=== PATIENT | female | born 1985 | race Caucasian/White ===

== ENCOUNTER 2022-03-16 09:50 | Outpatient (CLI) | payer MEDICAID, SELFPAY | END 2022-03-16 09:51 | disposition home or self-care (01) | LOC: LKVREF 09:51 | PROVIDERS: PCP Obstetrics & Gynecology; Visit Provider Physician Assistant Medical | DX: N39.0 Urinary tract infection, site not specified (principal) | CPT/HCPCS: 87086; 87186 ==

== ENCOUNTER 2022-11-18 12:48 | Outpatient (CLI) | payer MEDICAID, SELFPAY ==
[2022-11-18 22:42] LABS: Chlamydia DNA Amplified* NOT DETECTED (No Detected); GC DNA Amplified* NOT DETECTED (No Detected)
== END 2022-11-18 12:49 | disposition home or self-care (01) ==
LOC: LKVREF 12:49
PROVIDERS: PCP Obstetrics & Gynecology; Visit Provider Physician Assistant Medical
DX: Z00.00 Encounter for general adult medical examination without abnormal findings (principal); Z11.3 Encounter for screening for infections with a predominantly sexual mode of transmission
CPT/HCPCS: 0353U; 87491; 87591

== ENCOUNTER 2022-11-19 08:04 | Outpatient (CLI) | payer MEDICAID, SELFPAY | END 2022-11-19 08:05 | disposition home or self-care (01) | PROVIDERS: PCP Obstetrics & Gynecology; Visit Provider Physician Assistant Medical | DX: Z00.00 Encounter for general adult medical examination without abnormal findings (principal); E78.5 Hyperlipidemia, unspecified; L70.9 Acne, unspecified | CPT/HCPCS: 80053; 80061 ==

== ENCOUNTER 2023-06-03 10:28 | Outpatient (CLI) | payer MEDICAID, SELFPAY | END 2023-06-03 10:29 | disposition home or self-care (01) | PROVIDERS: PCP Obstetrics & Gynecology; Visit Provider Family Medicine | DX: R42 Dizziness and giddiness (principal); R47.81 Slurred speech; E78.5 Hyperlipidemia, unspecified | CPT/HCPCS: 80053; 84443 ==

== ENCOUNTER 2023-06-09 12:38 | Outpatient (CLI) | payer MEDICAID, SELFPAY ==
--- NOTE | 2023-06-09 13:00 | CRLHL7_ITS ---
For Patients: As a result of the Century Cures Act, medical imaging exams and procedure reports are released immediately into your electronic medical record. You may view this report before your referring provider. If you have questions, please contact your health care provider. INDICATION: Syncope. TECHNIQUE: Multisequence multiplanar MRI of the head without contrast. COMPARISON: None available. FINDINGS: Diffusion-weighted imaging demonstrates no evidence of acute or subacute ischemia. There is no abnormal brain parenchymal signal intensity. The ventricles are normal in size. Flow voids of the larger intracranial arteries are patent. Bone marrow signal intensity of the calvarium is within normal limits. Orbits are unremarkable in appearance. Paranasal sinuses and mastoid air cells are predominantly clear. IMPRESSION: Unremarkable noncontrast MRI of the brain. Dictated by Osiel Wiggins MD @ 06/09/2023 4:47:06 PM (Electronically Signed)
== END 2023-06-09 12:39 | disposition home or self-care (01) ==
PROVIDERS: PCP Family Medicine; Visit Provider Family Medicine
DX: R55 Syncope and collapse (principal); R47.81 Slurred speech; R42 Dizziness and giddiness
CPT/HCPCS: 70551

== ENCOUNTER 2023-10-05 13:33 | Outpatient (CLI) | payer MEDICAID, SELFPAY | END 2023-10-05 13:34 | disposition home or self-care (01) | LOC: NFLDREF 10-15 14:06 | PROVIDERS: PCP Family Medicine; Referring Provider Family Medicine; Visit Provider Family Medicine | DX: E78.00 Pure hypercholesterolemia, unspecified (principal); E78.5 Hyperlipidemia, unspecified | CPT/HCPCS: 80061; 80076 ==

== ENCOUNTER 2024-01-16 20:27 | Emergency (ER) | payer MEDICAID, SELFPAY ==
[2024-01-16 20:36] VITALS: BP 123/84; PULSE 77; RESP 16; TEMP 36.6; O2SAT 100; BMI 28.3
--- NOTE | 2024-01-16 20:44 | CRLHL7_ITS ---
For Patients: As a result of the Century Cures Act, medical imaging exams and procedure reports are released immediately into your electronic medical record. You may view this report before your referring provider. If you have questions, please contact your health care provider. Indication: Knee pain Technique: Right knee 3 views Comparison: None Findings: Bones: Alignment is normal. No fractures or bone lesions. Joint spaces: Spurring at the lateral aspect of the patella. Joint effusion. Soft tissues: Unremarkable. Impression: Joint effusion. No fracture. Dictated by Bar Bailon MD @ 01/16/2024 9:55:16 PM (Electronically Signed)
--- NOTE | 2024-01-16 20:45 | ED.GENADULT ---
HPI - General Adult General Date Seen: 01/16/24 Chief complaint: Unspecified Complaint, Adult Stated complaint: 3 weeks knee pain/swelling right arm numb/burning Time Seen by Provider: 01/16/24 20:35 Source: patient, RN notes reviewed and old records reviewed Mode of arrival: ambulatory Limitations: no limitations History of Present Illness HPI narrative: Patient is a 38-year-old woman here for evaluation of 2 problems. One she says for the past few weeks she has been having some pain in her knee. Sometimes the outside upper part of the knee puffs up she says. She has trouble kneeling on it because it is painful and bending it to an extreme is also painful. She has not had any specific injury, no locking or giving out. Also she notes for the past couple weeks in the mornings particularly she is getting some burning pain in her right arm. It is not there currently. No weakness or numbness. She has been getting chiropractic adjustment of her neck in her knee but says she can not continue to do that because it is too expensive. She does not have any known history of cervical radiculopathy. She has not had fevers, no neck trauma, no neck pain. Related Data Previous Rx's ?Medication ?Instructions ?Recorded lorazepam 0.5 mg tablet (Ativan) 0.5 mg PO BID PRN anxiety #60 tabs 07/08/23 rosuvastatin 10 mg tablet 10 mg PO DAILY #90 tabs 07/08/23 clonazepam 1 mg tablet (Klonopin) 0.5 - 1 mg (0.5 - 1 x 1 mg) PO QHS 10/20/23 #30 tabs venlafaxine 150 mg 150 mg PO QAM #30 caps 10/20/23 capsule,extended release 24 hr (Effexor XR) Allergies Allergy/AdvReac Type Severity Reaction Status Date / Time No Known Drug Allergies Allergy Verified 08/03/23 12:33 Review of Systems Status of ROS: Reports: 10 or more systems reviewed and unremarkable except as noted in History and below [facility] Medical History Depression ?F32.A - Depression, unspecified (ICD-10) Ectopic (05/10/12) ?O00.90 - Unspecified ectopic without intrauterine (ICD-10) Abnormal cervical Papanicolaou smear (05/10/12) ?R87.619 - Unspecified abnormal cytological findings in specimens from cervix uteri (ICD-10) Surgical History H/O right wrist surgery ?Z98.890 - Other specified postprocedural states (ICD-10) Status post tubal ligation ?Z98.51 - Tubal ligation status (ICD-10) History of umbilical hernia repair ?Z98.890 - Other specified postprocedural states (ICD-10) ?Z87.19 - Personal history of other diseases of the digestive system (ICD-10) History of cone biopsy of cervix ?Z98.890 - Other specified postprocedural states (ICD-10) History of appendectomy (05/10/12) ?Z90.49 - Acquired absence of other specified parts of digestive tract (ICD-10) Family History Maternal Grandmother Angiosarcoma Mother Bone cancer Paternal Grandfather Cardiac mass Social History Narrative: . 4 kids ( 16, 11, 7, 3 yo). 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 In general, an alert, well-appearing patient. Looks comfortable. Head: Normocephalic, atraumatic. Eyes: Pupils are equal reactive. Extraocular movements are full. Conjunctivae are normal. ENT: Mucous membranes are moist. Neck: Supple without lymphadenopathy. Nontender to palpation. Extremities: Well perfused. No edema. No calf tenderness. Pulses intact. The right knee is normal in appearance, no effusion, erythema, warmth. Full range of motion. A little bit of tenderness along the lateral joint line. Neurologic: Patient is alert and oriented to person and place. Speech is fluent. Face is symmetric. Moves all extremities equally. Strength is 5 of 5 in bilateral upper extremities. Sensation is intact to light touch. Affect: Normal. Skin: Warm and dry. Well perfused. Const: Vital Signs, click to edit/add: Vital Signs - 24 hr 01/16/24 20:36 Temperature 97.9 F Pulse Rate [Pulse Oximeter] 77 Respiratory Rate 16 Blood Pressure [Ri ght Upper Arm] 123/84 Pulse Oximetry 100 Oxygen Delivery Me thod Room Air Documenting provider has reviewed patient's vital signs: yes Course Course ED Course: X-rays of the right knee are ordered, by my review shows some spurring/degenerative changes of the lateral patella, radiology read as follows:Findings: Bones: Alignment is normal. No fractures or bone lesions. Joint spaces: Spurring at the lateral aspect of the patella. Joint effusion. Soft tissues: Unremarkable. Impression: Joint effusion. No fracture. Note this read came after patient had been discharged. Recommended a trial of nonsteroidals for the knee, there is nothing on exam to suggest an infectious or inflammatory process such as gout, other inflammatory arthritis, or septic joint. With regard her right arm symptoms, I suggested a trial of prednisone, this may be coming from something like a cervical disc but she does not have symptoms right now. Given that the entire arm is involved and less suspicious of neuropathy. No evidence cellulitis, DVT. Recommend primary care follow-up in the next week or 2, return any time for acute worsening. Orthopedic follow-up if knee continues to bother her. Vital Signs Vital signs: Initial Vital Signs Temperature 97.9 F 01/16/24 20:36 Temperature Source Temporal Artery Scan 01/16/24 20:36 Pulse Rate 77 01/16/24 20:36 Respiratory Rate 16 01/16/24 20:36 Blood Pressure 123/84 01/16/24 20:36 Blood Pressure Mean 97 01/16/24 20:36 Blood Pressure Position Sitting 01/16/24 20:36 Pulse Oximetry 100 01/16/24 20:36 Oxygen Delivery Method Room Air 01/16/24 20:36 Vital Signs Temperature 97.9 F 01/16/24 20:36 Pulse Rate 77 01/16/24 20:36 Respiratory Rate 16 01/16/24 20:36 Blood Pressure 123/84 01/16/24 20:36 Pulse Oximetry 100 01/16/24 20:36 Oxygen Delivery Method Room Air 01/16/24 20:36 Temperature 97.9 F 01/16/24 20:36 Pulse Rate 77 01/16/24 20:36 Respiratory Rate 16 01/16/24 20:36 Blood Pressure 123/84 01/16/24 20:36 Pulse Oximetry 100 01/16/24 20:36 Oxygen Delivery Method Room Air 01/16/24 20:36 Discharge Plan Discharge Clinical Impression: Knee pain, right Patient Disposition: Home, Self-Care Condition: Stable Instructions: Knee Pain (ED) Additional Instructions: I suspect that your knee pain may be due to a little bit of arthritis based on your x-rays. I would recommend a trial of ibuprofen 400 mg 3 times daily for the next week or so to see if you are improved. Make sure to take this with food. You can follow-up with orthopedics if you have ongoing difficulties, . For new symptoms such as significant swelling or redness, fever, etcetera, return to the emergency department. With regard your arm, I am not certain of the cause of those symptoms, but it may be related to a problem in your neck. I have prescribed a prednisone taper to see if that will improve things. Please follow-up with your primary doctor in the next week or 2 for re-evaluation. Return any time for acute worsening. Prednisone should be taken as follows, 3 tablets daily for 3 days, then 2 tablets daily for 3 days, then 1 tablet daily for 3 days. Prescriptions: No Action lorazepam [Ativan] 0.5 mg tablet 0.5 mg PO BID PRN (Reason: anxiety) Qty: 60 0RF rosuvastatin 10 mg tablet 10 mg PO DAILY Qty: 90 0RF clonazepam [Klonopin] 1 mg tablet 0.5 - 1 mg PO QHS Qty: 30 0RF Rx Instructions: administer 30 minutes before bedtime venlafaxine [Effexor XR] 150 mg capsule,extended release 24hr 150 mg PO QAM Qty: 30 2RF Follow Up/Referrals: Sy Baires MD [Primary Care Provider] - Stand Alone Forms: [employer] Info Instructions
--- OUTSIDE RECORDS SUMMARY | 2024-01-16 20:52 | XMS_ITS | Clinical Summary ---
Author Organization [employer] [facility] Address [place], [place] [address] Care Team Providers Care Household Cook Name Role Phone [place], [facility] Primary Care Provider Unavailable Allergies No known active allergies Medications Medication Sig Dispensed Refills Start Date End Date Status ibuprofen (ADVIL; MOTRIN) 600 mg tablet Take 1 tablet by mouth every 6 hours if needed for Pain. Maximum of 3200 mg in 24 hours. 30 tablet 0 10/22/2010 Active Active Problems Problem Noted Date Diagnosed Date Hyperopic astigmatism of right eye 07/16/2017 DYSPLASIA, CERVIX, MODERATE 06/19/2005 CONTRACEPTIVE PRESCRIPTION, MEASURE NEC 05/23/20 01 Resolved Problems Problem Noted Date Diagnosed Date Resolved Date Supervision of high-risk pre gnancy of young primigravida 07/23/2006 07/28/2007 Immunizations Name Administration Dates Next Due Human Papilloma Virus Vaccine 01/30/2008, 008,07/28/2007 Influenza, IIV3 (Age >=3 years) 07/23/2006,06/19 Tdap 06/07/2007 Family History Medical History Relation Name Comments Seizures Brother 2 Cancer Maternal Grandmother angiosc coma Allergies Mother Asthma Mother Genetic Other MGM: angiosarco ma~PGF: Alzheimers~MGF: COPD~no breast cancer, colon cancer Cancer Paternal Grandmother yun hernández Relation Name Status Comments Brother 1 Alive Brother 2 Father Alive Maternal Grandfather (Age ?) Maternal Grandmother (Age 50's) Mother Alive Other Paternal Grandfather Alive Paternal Grandmother (Age ?) Sister Alive Social History Tobacco Use Types Packs/Day Years Used Date Smoking Tobacco: Never Smokeless Tobacco: Never Alcohol Use Standard Drinks/Week Comments No 0 (1 standard drink = 0.6 oz pur e alcohol) Sex and Gender Information Value Date Recorded Sex Assigned at Not on file Gender Identity Not on file Sexual Orientation Not on file Obstetrics History Para Term AB IAB SAB Ectopic Multiple Livin g Live Births 2 1 1 0 0 0 0 0 1 1 Date Outcome GA Total Labor Labor/2nd/3rd Weight Sex Type Anes PTL Dona A1 A5 Name Clin Term 2006 40w 0d 3.49 kg (7 lb 11 oz) F VAGINA L VACU Livin g Kaylah e Delivery Location:R Comments:vaccuum gloria swathi, had epidural, pitocin Last Filed Vital Signs Vital Sign Reading Time Taken Comments Blood Pressure 114/70 07/16/2017 11:02 AM [employer]ORER [employer] Pulse 92 07/16/2017 11:02 AM [employer] Temperature 36.4 ??C (97.6 ??F) 10/22/2010 11:31 AM C DT Respiratory Rate 16 10/22/2010 12:30 PM CDT Oxygen Saturation 100% 10/22/2010 12:30 PM CDT Inhaled Oxygen Concentration - - Weight 60.4 kg (133 lb 2.5 oz) 10/22/2010 9:18 A M CDT Height 157.5 cm (5' 2) 10/22/2010 9:18 AM CDT Body Mass Index 24.35 10/22/2010 9:18 AM CDT Plan of Treatment Health Maintenance Due Date Last Done Comments Depression screening for age 12+ 1995 HIV for age 15-65 12/22/1998 BMI (ht and wt on same day) for age 18+ 12/22/2001 Hepatitis C screening for age 18-79 12/22/2001 Tetanus booster 06/07/2017 06/07/2007 COVID-19 vaccine series ( season) 2023 Influenza for age 9-49 04/09/2024 07/23/2006, 2004 Pap test for age 21-65 11/18/2025 3, 11/18/2022, 11/30/2016, Additional history exists Tdap Completed 06/07/2007 Pneumococcal series for age 6-64 Aged Out No longer eligible based on patient's age to complete this topic Procedures Procedure Name Priority Date/Time Associated Diagnosis Comments HPV THIN PREP Routine 11/18/2022 12:00 PM CDT from Last 3 Months or Most Recently Relevant to Health Maintenance Results * HPV HIGH RISK (11/18/2022 12:00 PM CDT) TYPE 16 Negative Negative 11/23/2022 1:45 PM CDT [facility] TYPE 18 Negative Negative 11/23/2022 1:45 PM CDT [facility] OTHER HIGH RISK TYPES Negative Negative 11/23/2022 1:45 PM CDT [facility] Other (Cervical) 11/18/2022 12:00 PM CDT 11/20/2022 10:42 AM CDT Narrative [facility] - 11/23/2022 1:45 PM CDT HPV types 16, 18, 31, 33, 35, 39, 45, 51, 52, 56, 58, 59, 66 and 68 DNA were undetectable or below the pre-set threshold. Methodology: Antonette Kp 4800 HPV Test Nanette Roberts PA-C MICROBIOLOGY [facility] [address] [place] [address], from Last 3 Months or Most Recently Relevant to Health Maintenance Advance Directives * Full Code (Latest Code Status on File) Date Activated Date Inactivated Comments 10/22/2010 9:12 AM 10/22/2010 3:35 PM Care Teams Household Cook Relationship Specialty Start Date End Date Kevin, ChengFamily Health PCP - General 07/05/17
== END 2024-01-16 22:08 | disposition home or self-care (01) ==
PROVIDERS: Emergency Provider Emergency Medicine; PCP Family Medicine
DX: M25.561 Pain in right knee (principal)
CPT/HCPCS: 73562; 99283; 99284

== ENCOUNTER 2024-11-12 07:34 | Emergency (ER) | payer MEDICAID, SELFPAY ==
--- OUTSIDE RECORDS SUMMARY | 2024-11-12 07:35 | XMS_ITS | Clinical Summary ---
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 Gender Identity Not on file Sexual Orientation Not on file 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 Not on file Not on file Obstetrics History Para Term [...] Comments Blood Pressure 114/70 07/16/2017 11:02 AM DESK MANAGER Pulse 92 07/16/2017 11:02 AM DESK MANAGER Temperature 36.4 C (97.6 F) 10/22/2010 11:31 AM CDT Respiratory Rate 16 10/22/2010 12:30 PM CDT [...] Tetanus booster 06/07/2017 06/07/2007 COVID-19 vaccine series (2023- season) 2024 Influenza Vaccine (Season Ended) 2025 07/23/2006, 06/19/2005 Pap test for age 21-65 11/18/2025 , 11/18/2022, 11/30/2016, Additional history exists Tdap Completed 06/07/2007 Pneumococcal series for age 6-49 Aged Out No longer eligible based on patient's age to complete this topic Procedures Procedure Name Priority Date/Time Associated Diagnosis Comments HPV HIGH RISK Routine 11/18/2022 12:00 PM CDT from Last 3 Months or Most Recently Relevant to Health Maintenance Results * HPV HIGH RISK (11/18/2022 12:00 PM CDT) TYPE 16 Negative Negative 11/23/2022 1:45 PM CDT [facility] TYPE 18 Negative Negative 11/23/2022 1:45 PM CDT [facility]AL [facility] OTHER HIGH RISK TYPES Negative Negative 11/23/2022 1:45 PM CDT [facility] Other (Cervical) 11/18/2022 12:00 PM CDT 11/20/2022 10:42 AM CDT Narrative [facility] - 11/23/2022 1:45 PM CDT HPV types 16, 18, 31, 33, 35, 39, 45, 51, 52, 56, 58, 59, 66 and 68 DNA were undetectable or below the pre-set threshold. Methodology: Antonette Kp 4800 HPV Test Nanette Roberts PA-C MICROBIOLOGY Final Result [facility] [address] [place] [address], from Last 3 Months or Most Recently Relevant to Health Maintenance Insurance MEDICAID [facility] [employer] Advance Directives * Full Code (Latest Code Status on File) Date Activated Date Inactivated Comments 10/22/2010 9:12 AM 10/22/2010 3:35 PM Care Teams Evaluation Engineer Relationship Specialty Start Date End Date [facility] PCP - General 07/05/17
[2024-11-12 07:36] VITALS: BP 130/73; PULSE 88; RESP 18; TEMP 36.3; O2SAT 99; BMI 29.3
--- NOTE | 2024-11-12 07:51 | ED.GENADULT ---
HPI - General Adult General Chief complaint: Skin/Abscess/Foreign Body Stated complaint: R forearm rash/R eye Time Seen by Provider: 11/12/24 07:35 History of Present Illness HPI narrative: 38-year-old female reports that she has some redness in her forearm and infection under fingernail on her right hand. She has noticed redness today that is in the back of her hand and snf up her forearm. She has had no other complaints. She is updated immunizations. She reports she bumped her head work but that was minor and did have discomfort right away She also complained of some irritated right eye. No chemical exposure does not wear contacts visual acuity has been normal. Related Data Previous Rx's ?Medication ?Instructions ?Recorded meloxicam 15 mg tablet 15 mg PO QDAY #90 tabs 06/08/24 venlafaxine 150 mg 150 mg PO QAM #90 caps 10/10/24 capsule,extended release 24 hr (Effexor XR) venlafaxine 75 mg capsule,extended 75 mg PO QAM #90 caps 10/10/24 release 24 hr (Effexor XR) Allergies Allergy/AdvReac Type Severity Reaction Status Date / Time No Known Drug Allergies Allergy Verified 11/12/24 07:43 Review of Systems Status of ROS: Reports: 6 or more systems reviewed and unremarkable except as noted in History and below PFSH PFS Medical History Depression ?F32.A - Depression, unspecified (ICD-10) Ectopic (05/10/12) ?O00.90 - Unspecified ectopic without intrauterine (ICD-10) Abnormal cervical Papanicolaou smear (05/10/12) ?R87.619 - Unspecified abnormal cytological findings in specimens from cervix uteri (ICD-10) Surgical History H/O right wrist surgery ?Z98.890 - Other specified postprocedural states (ICD-10) Status post tubal ligation ?Z98.51 - Tubal ligation status (ICD-10) History of umbilical hernia repair ?Z98.890 - Other specified postprocedural states (ICD-10) ?Z87.19 - Personal history of other diseases of the digestive system (ICD-10) History of cone biopsy of cervix ?Z98.890 - Other specified postprocedural states (ICD-10) History of appendectomy (05/10/12) ?Z90.49 - Acquired absence of other specified parts of digestive tract (ICD-10) Family History Maternal Grandmother Angiosarcoma Mother Bone cancer Paternal Grandfather Cardiac mass Social History Narrative: . 4 kids ( 16, 11, 7, 3 yo). 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 There is no fluctuance or purulent pockets noted this is likely related to her cellulitic changes Const: Vital Signs, click to edit/add: Vital Signs - 24 hr 11/12/24 07:36 Temperature 97.3 F L Pulse Rate [Right Pulse Oximeter] 88 Respiratory Rate 18 Blood Pressure [Ri ght Upper Arm] 130/73 Pulse Oximetry 99 Oxygen Delivery Me thod Room Air Course Vital Signs Vital signs: Initial Vital Signs Temperature 97.3 F L 11/12/24 07:36 Temperature Source Temporal Artery Scan 11/12/24 07:36 Pulse Rate 88 11/12/24 07:36 Pulse Rhythm Regular 11/12/24 07:36 Pulse Strength 3+ Normal 11/12/24 07:36 Respiratory Rate 18 11/12/24 07:36 Blood Pressure 130/73 11/12/24 07:36 Blood Pressure Mean 92 11/12/24 07:36 Blood Pressure Position Sitting 11/12/24 07:36 Pulse Oximetry 99 11/12/24 07:36 Oxygen Delivery Method Room Air 11/12/24 07:36 Vital Signs Temperature 97.3 F L 11/12/24 07:36 Pulse Rate 88 11/12/24 07:36 Respiratory Rate 18 11/12/24 07:36 Blood Pressure 130/73 11/12/24 07:36 Pulse Oximetry 99 11/12/24 07:36 Oxygen Delivery Method Room Air 11/12/24 07:36 Temperature 97.3 F L 11/12/24 07:36 Pulse Rate 88 11/12/24 07:36 Respiratory Rate 18 11/12/24 07:36 Blood Pressure 130/73 11/12/24 07:36 Pulse Oximetry 99 11/12/24 07:36 Oxygen Delivery Method Room Air 11/12/24 07:36 Medications Administered Medications: Discontinued Medications Generic Name Dose Route Start Last Admin Trade Name Freq PRN Reason Stop Dose Admin Amoxicillin/Clavulanate Potassium 875 mg 11/12/24 07:49 11/12/24 08:01 Amoxicillin/Clavulanate 875 Mg/125 Mg Tablet PO 11/12/24 07:50 875 mg ONCE ONE Administration Medical Decision Making [facility] Narrative Medical decision making narrative: [age] year white female with a history of perineal infection with forearm lymphangitic cellulitic change. Also right eye irritation possibly early conjunctivitis. Patient does not were contacts. At this point I think simply treating with warm packs Augmentin 875 b.i.d. times 10 days would be appropriate. I think that will help with her eye and her forearm. If she does not improve or has worsening over the next 2-3 days would recommend recheck. She was comfortable this plan will follow up as directed activity as tolerated. Follow-up with primary care if not improving and return to ED problems or concerns. Will get her meds today [place] med[place] and will give her on Augmentin 875 here in the ER. Discharge Plan Discharge Clinical Impression: Cellulitis, Paronychia Patient Disposition: Home, Self-Care Condition: Stable Additional Instructions: Warm pack the arm, warm pack the eye wash out with a warm wash rag several times a day, Augmentin 875 b.i.d. for 10 days, activity as tolerated, recheck of worsening changes or concerns. Activity Level: No Restrictions Discharge Diet: Regular Prescriptions: No Action meloxicam 15 mg tablet 15 mg PO QDAY Qty: 90 1RF venlafaxine [Effexor XR] 75 mg capsule,extended release 24hr 75 mg PO QAM Qty: 90 0RF venlafaxine [Effexor XR] 150 mg capsule,extended release 24hr 150 mg PO QAM Qty: 90 0RF Follow Up/Referrals: Sy Baires MD [Primary Care Provider] - Stand Alone Forms: [employer] Info Instructions
[2024-11-12] MEDS: AMOXICILLIN/CLAVULANATE 875 mg/125 mg TABLET PO (08:01)
== END 2024-11-12 08:04 | disposition home or self-care (01) ==
LOC: ED 07:54
PROVIDERS: Emergency Provider Family Medicine; PCP Family Medicine
DX: L03.113 Cellulitis of right upper limb (principal); L03.011 Cellulitis of right finger
CPT/HCPCS: 99283; A9270

== ENCOUNTER 2024-12-23 23:46 | Emergency (ER) | payer MEDICAID, SELFPAY ==
[2024-12-23 23:53] VITALS: BP 130/89; PULSE 72; RESP 16; TEMP 36.1; O2SAT 99; BMI 29.3
--- NOTE | 2024-12-24 01:08 | ED_ITS ---
HPI - General Adult General Chief complaint: Jaw Injury/Pain Stated complaint: left side face pain Time Seen by Provider: 12/24/24 00:53 Source: patient Mode of arrival: ambulatory Limitations: no limitations History of Present Illness HPI narrative: 39-year-old female presents to the emergency department because of swelling on her jaw line. For the past 2 hours. No trauma or injury. No fever. She has had a small bump on the inside of her mouth for the past couple of weeks, reports that she saw her dentist and he did not think it was anything of note, at that time she was not having any facial swelling. She is vaccinated, no illness exposures. Has not tried any Tylenol or ibuprofen to help with symptoms. No prior history of similar symptoms. Swelling is on the left side, mildly tender. Opposite right side is not affected. Past medical history notable for anxiety and insomnia. Reports that her only home medication is venlafaxine. Social history reviewed. ROS is notable for the HEENT symptoms only, otherwise denies other HEENT, generalized, respiratory, GI or skin changes. Related Data Previous Rx's ?Medication ?Instructions ?Recorded meloxicam 15 mg tablet 15 mg PO QDAY #90 tabs 06/08/24 venlafaxine 150 mg 150 mg PO QAM #90 caps 10/10/24 capsule,extended release 24 hr (Effexor XR) venlafaxine 75 mg capsule,extended 75 mg PO QAM #90 caps 10/10/24 release 24 hr (Effexor XR) Allergies Allergy/AdvReac Type Severity Reaction Status Date / Time No Known Drug Allergies Allergy Verified 11/12/24 07:43 [facility] Medical History Depression ?F32.A - Depression, unspecified (ICD-10) Ectopic (05/10/12) ?O00.90 - Unspecified ectopic without intrauterine (ICD- 10) Abnormal cervical Papanicolaou smear (05/10/12) ?R87.619 - Unspecified abnormal cytological findings in specimens from cervix uteri (ICD-10) Surgical History H/O right wrist surgery ?Z98.890 - Other specified postprocedural states (ICD-10) Status post tubal ligation ?Z98.51 - Tubal ligation status (ICD-10) History of umbilical hernia repair ?Z98.890 - Other specified postprocedural states (ICD-10) ?Z87.19 - Personal history of other diseases of the digestive system (ICD-10) History of cone biopsy of cervix ?Z98.890 - Other specified postprocedural states (ICD-10) History of appendectomy (05/10/12) ?Z90.49 - Acquired absence of other specified parts of digestive tract (ICD- 10) Family History Maternal Grandmother Angiosarcoma Mother Bone cancer Paternal Grandfather Cardiac mass Social History Narrative: . 4 kids ( 16, 11, 7, 3 yo). 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 employed as [employer] No tobacco use, recreational drugs, alcohol Smoking Status: Never smoker Non-prescribed substance use: denies use Exam Const: Vital Signs, click to edit/add: Vital Signs - 24 hr 12/23/24 23:53 Temperature 96.9 F L Pulse Rate [Left P ulse Oximeter] 72 Respiratory Rate 16 Blood Pressure [Ri ght Upper Arm] 130/89 Pulse Oximetry 99 Oxygen Delivery Me thod Room Air Documenting provider has reviewed patient's vital signs: yes Common normals: no apparent distress General appearance: cooperative and comfortable HENMT: Common normals: normocephalic and moist oral mucous membranes Head and scalp: normocephalic Other: Mild swelling to lower outer 1st molar area left side. No signs of dental caries or broken teeth. No discoloration to the tooth. This correlates with swelling on the external skin. Jaw without deformity but there is some mild soft tissue swelling in the area described. Normal open and closure of the jaw, no tenderness over the TMJ joint. Remainder of oral mucosa and dentition are normal. Eye: Common normals: conjunctivae normal General eye: normal appearance of both eyes Conjunctiva: conjunctiva(e) normal Neck & C-Spine: Common normals: full ROM Other: Mild left submandibular lymphadenopathy only. No other areas affected. Remainder of neck with no swelling. Resp: Common normals: normal respiratory effort Effort & inspection: able to speak in complete sentences Psych: Common normals: speech normal Attitude: engaged Speech: normal speech Insight: fair Judgement: fair Skin: Common normals: no rashes or lesions noted General skin exam: no r ashes or lesions noted Course Course ED Course: 39-year-old female with very mild swelling of submandibular area, jawline and inter oral mucosa without signs of dental caries. Most likely diagnosis is sialadenitis, as this does seem to correlate with duct opening. There are no signs of major facial cellulitis, airway compromise, neck swelling or other emergent condition. Counseled on typical management of sour candy, pushing fluids. I do recommend a course of Augmentin 1 pill b.i.d. for 7 days. Dental follow-up if not improving in 5 days. Counseled that rarely infections can spread and cause difficulty with breathing, swallowing. If this occurs, she should come back to the ER right away. Most likely the small stone will work its way out, if not more advanced imaging and treatment may be needed but unlikely. Alarm symptoms reviewed, written instructions provided. Counseled on Tylenol and ibuprofen as needed for mild discomfort. Vital Signs Vital signs: Initial Vital Signs Temperature 96.9 F L 12/23/24 23:53 Temperature Source Temporal Artery Scan 12/23/24 23:53 Pulse Rate 72 12/23/24 23:53 Pulse Rhythm Regular 12/23/24 23:53 Respiratory Rate 16 12/23/24 23:53 Blood Pressure 130/89 12/23/24 23:53 Blood Pressure Mean 102 12/23/24 23:53 Blood Pressure Position Sitting 12/23/24 23:53 Pulse Oximetry 99 12/23/24 23:53 Oxygen Delivery Method Room Air 12/23/24 23:53 Vital Signs Temperature 96.9 F L 12/23/24 23:53 Pulse Rate 72 12/23/24 23:53 Respiratory Rate 16 12/23/24 23:53 Blood Pressure 130/89 12/23/24 23:53 Pulse Oximetry 99 12/23/24 23:53 Oxygen Delivery Method Room Air 12/23/24 23:53 Temperature 96.9 F L 12/23/24 23:53 Pulse Rate 72 12/23/24 23:53 Respiratory Rate 16 12/23/24 23:53 Blood Pressure 130/89 12/23/24 23:53 Pulse Oximetry 99 12/23/24 23:53 Oxygen Delivery Method Room Air 12/23/24 23:53 Discharge Plan Discharge Clinical Impression: Acute sialoadenitis Patient Disposition: Home w/ Parent or Adult Condition: Stable Instructions: Sialoadenitis (ED) Additional Instructions: As we discussed, the swelling seems to be from an inflammation of a salivary gland. Often, there is a small stone in the duct that will relieve itself within the next week or 2. Sometimes it is caused by a bacterial infection or a viral infection. Antibiotics can calm down the inflammation. I have prescribed a course of Augmentin. Take 1 pill 2 times a day. It may cause loose stools. It is okay to use a little bit of Imodium to help counteract this. It is okay to use an ofqo-yio-sbjaqza Monistat or similar product to help reduce or treat vaginal yeast infection as well. If symptoms are not improving in 5 days, I would make a follow-up appointment with my dentist. It is okay to use Tylenol 1000 mg every 6 hours and or ibuprofen 600 mg every 6 hours as needed for discomfort. This is non contagious and you are cleared to return to work. Activity Level: No Restrictions Discharge Diet: Regular Prescriptions: No Action meloxicam 15 mg tablet 15 mg PO QDAY Qty: 90 1RF venlafaxine [Effexor XR] 75 mg capsule,extended release 24hr 75 mg PO QAM Qty: 90 0RF venlafaxine [Effexor XR] 150 mg capsule,extended release 24hr 150 mg PO QAM Qty: 90 0RF Follow Up/Referrals: Sy Baires MD [Primary Care Provider] - Stand Alone Forms: [employer] Info Instructions
--- OUTSIDE RECORDS SUMMARY | 2024-12-24 17:40 | XMS_ITS | Clinical Summary ---
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 Gender Identity Not on file Sexual Orientation [...] Comments Blood Pressure 114/70 07/16/2017 11:02 AM SPEAKER WIRER Pulse 92 07/16/2017 11:02 AM SPEAKER WIRER Temperature 36.4 C (97.6 F) 10/22/2010 11:31 [...] 16 Negative Negative 11/23/2022 1:45 PM CDT [facility] TYPE 18 Negative Negative 11/23/2022 1:45 PM CDT [facility] OTHER HIGH RISK TYPES Negative Negative 11/23/2022 1:45 PM CDT [facility] Other (Cervical) 11/18/2022 12:00 PM CDT 11/20/2022 10:42 AM CDT Narrative [facility] - 11/23/2022 1:45 PM CDT HPV types 16, 18, 31, 33, 35, 39, 45, 51, 52, 56, 58, 59, 66 and 68 DNA were undetectable or below the pre-set threshold. Methodology: Antonette Kp 4800 HPV Test Nanette Roberts PA-C MICROBIOLOGY Final Result [facility] [address] [place] [address], from Last 3 Months or Most Recently Relevant to Health Maintenance Insurance MEDICAID [facility] [employer] Advance Directives * Full Code (Latest Code Status on File) Date Activated Date Inactivated Comments 10/22/2010 9:12 AM 10/22/2010 3:35 PM Care Teams Municipal Clerk Relationship Specialty Start Date End Date [facility] PCP - General 07/05/17
== END 2024-12-24 01:13 | disposition home or self-care (01) ==
LOC: ED 12-24 01:10
PROVIDERS: Emergency Provider Family Medicine; PCP Family Medicine
DX: K11.21 Acute sialoadenitis (principal)
CPT/HCPCS: 99283

== ENCOUNTER 2025-01-23 11:00 | Outpatient (CLI) | payer MEDICAID, SELFPAY | END 2025-01-23 11:01 | disposition home or self-care (01) | LOC: NFLDREF 01-26 10:10 | PROVIDERS: PCP Family Medicine; Referring Provider Family Medicine; Visit Provider Physician Assistant Medical | DX: Z00.00 Encounter for general adult medical examination without abnormal findings (principal); E78.5 Hyperlipidemia, unspecified; G47.00 Insomnia, unspecified; F41.9 Anxiety disorder, unspecified; F32.A Depression, unspecified; F51.01 Primary insomnia | CPT/HCPCS: 80053; 80061; 84443 ==

== ENCOUNTER 2025-02-17 21:07 | Emergency (ER) | payer MEDICAID, SELFPAY ==
--- OUTSIDE RECORDS SUMMARY | 2025-02-17 21:09 | XMS_ITS | Clinical Summary ---
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 Gender Identity Not on file Sexual Orientation [...] Comments Blood Pressure 114/70 07/16/2017 11:02 AM PERSONAL INJURY ATTORNEY Pulse 92 07/16/2017 11:02 AM PERSONAL INJURY ATTORNEY Temperature 36.4 C (97.6 F) 10/22/2010 11:31 [...] Hepatitis C screening for age 18-79 12/22/2001 Hepatitis B series for 19+ (1 of 3 - 19+ 3-dose series) 12/22/2002 Tetanus booster 06/07/2017 06/07/2007 COVID-19 vaccine series (2023- season) 2024 Influenza Vaccine (#1) 2025 07/23/2006, 2004 Pap test for age 21-65 11/18/2025 , 11/18/2022, 11/30/2016, Additional history exists Pneumococcal series for age 6-49 Aged Out No longer eligible based on patient's age to complete this topic Procedures Procedure Name Priority Date/Time Associated Diagnosis Comments HPV HIGH RISK Routine 11/18/2022 12:00 PM CDT from Last 3 Months or Most Recently Relevant to Health Maintenance Results * HPV HIGH RISK (11/18/2022 12:00 PM CDT) TYPE 16 Negative Negative 11/23/2022 1:45 PM CDT [facility] TYPE 18 Negative Negative 11/23/2022 1:45 PM CDT [facility] OTHER HIGH RISK TYPES Negative Negative 11/23/2022 1:45 PM CDT [facility] Other (Cervical) 11/18/2022 12:00 PM CDT 11/20/2022 10:42 AM CDT Narrative [facility] - 11/23/2022 1:45 PM CDT HPV types 16, 18, 31, 33, 35, 39, 45, 51, 52, 56, 58, 59, 66 and 68 DNA were undetectable or below the pre-set threshold. Methodology: Antonette Kp 4800 HPV Test Nanette Roberts PA-C MICROBIOLOGY Final Result [facility] [address] [place] [address], from Last 3 Months or Most Recently Relevant to Health Maintenance Insurance MEDICAID [facility] [employer] Advance Directives * Full Code (Latest Code Status on File) Date Activated Date Inactivated Comments 10/22/2010 9:12 AM 10/22/2010 3:35 PM Care Teams Advanced Manufacturing Engineer Relationship Specialty Start Date End Date [facility] PCP - General 07/05/17
[2025-02-17 21:15] VITALS: BP 121/78; PULSE 98; RESP 16; TEMP 36.7; O2SAT 100; BMI 31.1
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
== END 2025-02-17 21:58 | disposition home or self-care (01) ==
PROVIDERS: Emergency Provider Family Medicine; PCP Family Medicine
DX: H92.02 Otalgia, left ear (principal); J02.9 Acute pharyngitis, unspecified
CPT/HCPCS: 99283

== ENCOUNTER 2025-05-14 14:11 | Outpatient (CLI) | payer MEDICAID, SELFPAY ==
--- NOTE | 2025-05-14 15:20 | CRLHL7_ITS ---
For Patients: As a result of the Century Cures Act, medical imaging exams and procedure reports are released immediately into your electronic medical record. You may view this report before your referring provider. If you have questions, please contact your health care provider. INDICATION: BILATERAL SCREENING MAMMOGRAM, ASYMPTOMATIC 39 Y/O FEMALE COMPARISON: BASELINE TECHNIQUE: Digital mammogram in CC and MLO projections including computer-aided detection (CAD) and tomosynthesis. BREAST COMPOSITION: The breasts are heterogeneously dense, which may obscure small masses. FINDINGS: No suspicious findings. ASSESSMENT: BI-RADS 1 Negative RECOMMENDATION: Annual screening mammogram. A lay language report of this examination will be provided to the patient. Dictated by: Bar Bailon MD @ 05/15/2025 10:06:52 (Electronically Signed)
== END 2025-05-14 14:12 | disposition home or self-care (01) ==
LOC: MAMMO 14:11
PROVIDERS: PCP Family Medicine; Visit Provider Physician Assistant Medical
DX: Z12.31 Encounter for screening mammogram for malignant neoplasm of breast (principal); R92.333 Mammographic heterogeneous density, bilateral breasts
CPT/HCPCS: 77063; 77067

== ENCOUNTER 2025-07-27 21:17 | Emergency (ER) | payer MEDICAID, SELFPAY ==
--- OUTSIDE RECORDS SUMMARY | 2025-07-27 21:19 | XMS_ITS | Clinical Summary ---
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 Maximum of 3200 mg in 24 hours. 30 tablet ctive Active Problems ProblemNoted DateDiagnosed DateHyperopic astigmatism of right eye07/16/2017 DYSPLASIA, CERVIX, YYDGGTNK78/11/2005CONTRACEPTIVE PRESCRIPTION, MEASURE NEC 05/23/2001 Resolved Problems ProblemNoted DateDiagnosed DateResolved DateSupervision of high-risk of young fcuysevakcea35 Immunizations ImmunizationAdministration DatesNext DueHuman Papilloma Virus Pvdrtoa9701/30/2008, 09/28/2007,07/28/2007Influenza, IIV3 (Age >=3 years)07/23/2006,06/19/2005Tdap 06/07/2007 Family History Medical HistoryRelationNameCommentsSeizuresBrother 2CancerMaternal Grandmother angiosccomaAllergiesMotherAsthmaMotherGeneticOtherMGM: angiosarcoma~PGF: Alzheimers~MGF: COPD~no breast cancer, colon cancerCancerPaternal Grandmother carsinomaRelationNameStatusCommentsBrother 1AliveBrother 2FatherAliveMaternal GrandfatherDeceased (Age ?)Maternal GrandmotherDeceased (Age 50's)MotherAlive OtherPaternal GrandfatherAlivePaternal GrandmotherDeceased (Age ?)SisterAlive Social History Tobacco UseTypesPacks/DayYears UsedDateSmoking Tobacco: NeverSmokeless Tobacco: NeverAlcohol UseStandard Drinks/WeekCommentsNo0 (1 standard drink = 0.6 oz pure alcohol)CommentsNoSex and Gender InformationValueDate RecordedSex Assigned at BirthNot on fileLegal SloEigdph71/14/2013 5:16 AM CSTGender Identity Not on fileSexual OrientationNot on fileOccupationIndustryJob Start DateJob End Dateproduction staffNot on fileNot on fileNot on file Obstetrics History GravidaParaTermPretermABIABSABEctopicMultipleLivingLive [id number] OutcomeGATotal LaborLabor/2nd/6fhQgvpghJtwUgniUkeaZTKKylU0H8WhdoAiqySqks 12/26/20060535Jnnyaxr37a3w3.49 kg (7 lb 11 oz)FVAGINAL VACULivingNatalieDelivery Location[facility] Comments:vaccuum assisted, had epidural, pitocin Last Filed Vital Signs Vital SignReadingTime TakenCommentsBlood Xropjgdl911/7007/16/2017 11:02 AM 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 Jawhn849907/16/2017 11:02 AM HEDOynbewbnoqw78.4 ??C (97.6 ??F)10/22/2010 11:31 AM CDTRespiratory Qcfi709410/22/2010 12:30 PM CDTOxygen Ncatynulro057%10/22/2010 12:30 PM CDTInhaled Oxygen Concentration--Xxhzpk85.4 kg (133 lb 2.5 oz) 10/22/2010 9:18 AM GJBNomlfu732.5 cm (5' 2)10/22/2010 9:18 AM CDTBody Mass Index24.35010/22/2010 9:18 AM CDT Plan of Treatment Health MaintenanceDue DateLast DoneCommentsDepression screening for age 12+ 1995HIV for age 15-BMI (ht and wt on same day) for age 18+ 12/22/2001Hepatitis C screening for age 18-Hepatitis B series for 19+ (1 of 3 - 19+ 3-dose series)12/22/2002Tetanus aebtisz23 COVID-19 vaccine series ( - 2024- season)2025Influenza Vaccine (#1) 512/, 06/19/2005Pap test for age 21-650/604/07/2023, 11/18/2022, 11/30/2016, Additional history existsHPV series for age 9-45 Xxpteindu51/23/2008, 09/28/2007, 07/28/2007Pneumococcal series for age 6-49Aged OutNo longer eligible based on patient's age to complete this topic Procedures Procedure NamePriorityDate/TimeAssociated DiagnosisCommentsHPV HIGH RISKRoutine 11/18/2022 12:00 PM CDT from Last 3 Months or Most Recently Relevant to Health Maintenance Results * HPV HIGH RISK (11/18/2022 12:00 PM CDT)ComponentValueRef RangeTest Method Analysis TimePerformed AtPathologist SignatureTYPE 16NegativeNegative 11/23/2022 1:45 PM CD[facility]AL LABORATORYTYPE 18 CrqjqtwaNgeosmie26/17/2023 1:45 PM CD[facility]AL LABORATORYOTHER HIGH RISK NHHEEUrqnzbakVhzdpxbd35/17/2023 1:45 PM CD[facility]-CENTRAL LABORATORYSpecimen (Source)Anatomical Location / LateralityCollection Method / VolumeCollection TimeReceived TimeOther (Cervical)11/18/2022 12:00 PM CDT11/20/2022 10:42 AM CDT Narrative [facility] - 11/23/2022 1:45 PM CDT HPV types 16, 18, 31, 33, 35, 39, 45, 51, 52, 56, 58, 59, 66 and 68 DNA were undetectable or below the pre-set threshold. Methodology: Wedding [address] 4800 HPV Test Authorizing ProviderResult TypeResult StatusSaradha FIELDICROBIOLOGYFinal ResultPerforming OrganizationAddressCity/State/ZIP CodePhone Number [facility] [address] [place] [address], from Last 3 Months or Most Recently Relevant to Health Maintenance Insurance Advance Directives * Full Code (Latest Code Status on File) Date ActivatedDate InactivatedComments10/22/2010 9:12 AM10/22/2010 3:35 PM Care Teams Team MemberRelationshipSpecialtyStart DateEnd Date [facility] PCP - Iumfsmr40/27/17
[2025-07-27 21:24] VITALS: BP 138/88; PULSE 75; RESP 18; TEMP 35.5; O2SAT 100; BMI 29.3
--- NOTE | 2025-07-27 21:43 | CRLHL7_ITS ---
For Patients: As a result of the Cures Act, medical imaging exams and procedure reports are released immediately into your electronic medical record. You may view this report before your referring provider. If you have questions, please contact your health care provider. INDICATION: Left flank and left lower quadrant abdominal pain TECHNIQUE: CT Abdomen and pelvis without i.v. contrast. Coronal and sagittal reformats were obtained. COMPARISON: None FINDINGS: Lower chest: Unremarkable. Liver: Unremarkable. Spleen: Unremarkable. Pancreas: Unremarkable. Gallbladder: A tiny layering density seen near the gallbladder neck which may represent a punctate gallstone. Kidney: There is a 1 mm density in the distal left ureter noted, just proximal to the ureterovesicular junction causing mild left hydroureter, renal pelviectasis and left perinephric edema. Adrenal: Unremarkable. Bowel: The stomach, small bowel, and colon are unremarkable. Previous appendectomy noted with no significant appendiceal stump identified. Vascular: Unremarkable. Lymph: Unremarkable. Peritoneum: Unremarkable. No pneumoperitoneum is seen. No significant ascites is noted. Pelvis: Unremarkable. Soft tissue: Unremarkable. Bone: Unremarkable for age. IMPRESSION: 1. There is a 1 mm density in the distal left ureter noted, just proximal to the ureterovesicular junction causing mild left hydroureter, renal pelviectasis and left perinephric edema. Dictated by Adria Florian MD @ 07/27/2025 10:18:28 PM Please note that all CT scans at this facility use dose modulation, iterative reconstruction, and/or weight-based dosing when appropriate to reduce radiation dose to as low as reasonably achievable. Dictated by: Adria Florian MD @ 07/27/2025 22:18:30 (Electronically Signed)
[2025-07-27 21:55] LABS: Appearance Urine Clear (Clear)
[2025-07-27 21:56] LABS: Ur HCG Qualitative* Negative (Negative)
[2025-07-27] MEDS: ONDANSETRON 2 MG/ML inj 4 MG IVP (22:33)
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
[2025-07-27 22:52] LABS: Hematocrit* 39.3 % (33.0-51.0); Hemoglobin* 12.7 gm/dL (12.0-16.0); Immature Granulocytes Abs Auto 0.20 K/uL (0.00-0.30); Immature Granulocytes Pct Auto 1.1 %; Mean Corpuscular HGB Conc 32 gm/dL (32-36); Mean Corpuscular Hemoglobin 28 pg (26-34); Mean Corpuscular Volume 87 fL (80-100); RDW Coefficient of Variation % 13.2 % (11.5-15.5); Red Blood Count* 4.52 m/uL (4.00-5.20); White Blood Count* 17.55 K/uL (4.50-11.00)
[2025-07-27 22:53] LABS: Chloride* 104 mmol/L (96-114); Sodium* 134 mmol/L (135-149)
[2025-07-27 22:54] LABS: Potassium* 3.7 mmol/L (3.6-5.1)
[2025-07-27 22:57] LABS: Anion Gap 9 mEq/L (7-15); Blood Urea Nitrogen* 20 mg/dL (5-24); Calcium* 9.2 mg/dL (8.4-10.6); Carbon Dioxide* 21 mmol/L (20-32); Creatinine* 0.7 mg/dL (0.5-1.5); Est. Creatinine Clearance* 83.65; Estimated Glomerular Filt Rate 111 ml/min; Glucose* 136 mg/dL (60-115)
[2025-07-27 23:01] LABS: Lymphocytes Absolute Auto 1.30 K/uL (0.90-2.90); Slide Review Reflex No
[2025-07-27 23:27] VITALS: TEMP 36.8
== END 2025-07-28 00:20 | disposition home or self-care (01) ==
PROVIDERS: Emergency Provider Emergency Medicine; PCP Family Medicine
DX: N13.2 Hydronephrosis with renal and ureteral calculous obstruction (principal)
CPT/HCPCS: 36415; 74176; 80048; 81001; 81025; 85025; 96361; 96374; 96375; 99284; 99285; A9270; J1885; J2405; J7030